=== PATIENT | male | born 1995 | race Caucasian/White ===

== ENCOUNTER 2017-11-26 14:12 | Emergency (ER) | payer OTHER ==
--- NOTE | 2017-11-26 14:33 | ER Document Report ---
ED GI/ - General Mode of Arrival: Ambulatory Information source: Patient TRAVEL OUTSIDE OF THE [place] IN LAST 30 DAYS: No <FREEMAN ORELLANA - Last Filed: 11/26/17 15:05> <FREDI FRIAS - Last Filed: 12/05/17 07:41> - General Chief Complaint: Abdominal Pain Stated Complaint: ABDOMINAL PAIN Time Seen by Provider: 11/26/17 14:30 Notes: Patient is a 22-year-old male that presents to the emergency department today after feeling "backed up". Patient states he developed pain when he woke up this morning and it is localized in the left lower quadrant. Patient states the pain does not radiate. Patient states he had a normal bowel movement last night but he has not had one today. Patient describes the pain as a throbbing pain and describes it as waxing and waning. Patient denies any testicular pain or blood in his diarrhea or bowel movements. (FREEMAN ORELLANA) - Related Data Allergies/Adverse Reactions: No Known Allergies Allergy (Verified 11/26/17 14:13) Past Medical History - General Information source: Patient - Social History Smoking Status: Never Smoker Cigarette use (# per day): No Frequency of alcohol use: None Drug Abuse: None Lives with: Family Family History: Reviewed & Not Pertinent Psychiatric Medical History: Reports: Hx Anxiety, Hx Attention Deficit Hyperactivity Disorder, Hx Depression Surgical Hx: Negative <FREEMAN ORELLANA - Last Filed: 11/26/17 15:05> Review of Systems - Review of Systems Constitutional: No symptoms reported EENT: No symptoms reported Cardiovascular: No symptoms reported Respiratory: No symptoms reported Gastrointestinal: See HPI, Abdominal pain. denies: Black stools, Rectal bleeding Genitourinary: No symptoms reported Male Genitourinary: denies: Testicular pain Musculoskeletal: No symptoms reported Skin: No symptoms reported Hematologic/Lymphatic: No symptoms reported Neurological/Psychological: No symptoms reported -: Yes All other systems reviewed and negative <FREEMAN ORELLANA - Last Filed: 11/26/17 15:05> Physical Exam <FREEMAN ORELLANA - Last Filed: 11/26/17 15:05> <FREDI FRIAS - Last Filed: 12/05/17 07:41> - Vital signs Vitals: Temp Pulse Resp BP Pulse Ox 97.5 F 58 L 16 142/93 H 100 11/26/17 14:22 11/26/17 14:22 11/26/17 14:22 11/26/17 14:22 11/26/17 14:22 - Notes Notes: Physical Exam: General: Alert, appears well. HEENT: Normocephalic. Atraumatic. PERRL. Extraocular movements intact. Oropharynx clear. Neck: Supple. Non-tender. Respiratory: No respiratory distress. Clear and equal breath sounds bilaterally. Cardiovascular: Regular rate and rhythm. Abdominal: Mild left lower quadrant tenderness with palpation, no rebound or guarding. No distension. Normal Bowel Sounds. Back: Non-tender. No deformity or step off. Extremities: Moves all four extremities. Upper extremities: Normal inspection. Normal ROM. Lower extremities: Normal inspection. No edema. Normal ROM. Neurological: Normal cognition. AAOx4. Normal speech. Psychological: Normal affect. Normal Mood. Skin: Warm. Dry. Normal color. (FREEMAN ORELLANA) Course - Laboratory Result Diagrams: 11/26/17 14:37 11/26/17 14:37 <FREEMAN ORELLANA - Last Filed: 11/26/17 15:05> - Laboratory Result Diagrams: 11/26/17 14:37 11/26/17 14:37 <FREDI FRIAS - Last Filed: 12/05/17 07:41> - Re-evaluation Re-evalutation: 11/26/17 16:50 Patient found to have 3 mm stone in bladder. Urine shows no signs of infection. Discussed findings with family at bedside and patient. Patient will be discharged with pain and nausea control. Return precautions provided regarding signs and symptoms of infected stone. Encourage patient to drink more water instead of soft drinks (FREDI FRIAS) - Vital Signs Vital signs: Temp Pulse Resp BP Pulse Ox 97.5 F 58 L 21 H 132/83 H 99 11/26/17 16:59 11/26/17 14:22 11/26/17 16:59 11/26/17 16:59 11/26/17 16:59 - Laboratory Laboratory results interpreted by me: 11/26/17 11/26/17 11/26/17 14:37 14:37 14:52 WBC 18.5 H Absolute Neutrophils 14.0 H Absolute Monocytes 1.5 H Glucose 134 H Calcium 10.5 H AST 15 L Urine Protein 30 H Urine Blood LARGE H Urine Urobilinogen 4.0 H Discharge <FREEMAN ORELLANA - Last Filed: 11/26/17 15:05> <FREDI FRIAS - Last Filed: 12/05/17 07:41> - Discharge Clinical Impression: Kidney stone on left side Disposition: HOME, SELF-CARE Instructions: Kidney Stone ([facility]) Additional Instructions: If you begin to develop any fevers or chills return immediately to emergency department for reevaluation. Prescriptions: Ondansetron HCl [Zofran 4 mg Tablet] 1 tab PO Q4H PRN #10 tablet PRN Reason: Oxycodone HCl/Acetaminophen [Percocet 5-325 mg Tablet] 1 tab PO Q4H PRN #15 tablet PRN Reason: Referrals: NAZ HOGAN PA-C [Primary Care Provider] - Follow up as needed Scribe Attestation: 12/05/17 07:41 I personally performed the services described in the documentation, reviewed and edited the documentation which was dictated to the scribe in my presence, and it accurately records my words and actions. (FREDI FRIAS) Scribe Documentation - Scribe Written by Rachellee:: Cecilia Burgess, 11/26/2017 1505 acting as scribe for :: Trent <FREEMAN ORELLANA - Last Filed: 11/26/17 15:05>
[2017-11-26 14:58] LABS: ABSOLUTE BASOPHILS # (AUTO) 0.1 10^3/uL (0.0-0.2); ABSOLUTE EOSINOPHILS # (AUTO) 0.4 10^3/uL (0.0-0.6); ABSOLUTE LYMPHOCYTES (AUTO) 2.5 10^3/uL (0.5-4.7); ABSOLUTE MONOCYTES (AUTO) 1.5 10^3/uL (0.1-1.4); BASOPHILS % (AUTO) 0.5 % (0-2); EOSINOPHILS % (AUTO) 2.4 % (0-6); HEMATOCRIT 43.7 % (37.9-51.0); HEMOGLOBIN 14.8 g/dL (13.5-17.0); LYMPHOCYTES % (AUTO) 13.6 % (13-45); MEAN CORPUSCULAR HGB CONC 33.9 g/dL (32.0-36.0); MEAN CORPUSCULAR VOLUME 89 fl (80-97); MONOCYTES % (AUTO) 8.2 % (3-13); PLATELET COUNT 450 10^3/uL (150-450); RED BLOOD COUNT 4.93 10^6/uL (4.35-5.55); RED CELL DISTRIBUTION WIDTH 13.5 % (11.5-14.0); SEGMENTED NEUTROPHILS % (AUTO) 75.3 % (42-78); TOTAL CELLS COUNTED % (AUTO) 100 %; WHITE BLOOD COUNT 18.5 10^3/uL (4.0-10.5)
[2017-11-26] MEDS ORDERED: METOCLOPRAMIDE HCL INJ/PF 10 MG/2 ML SDV IV ONE (14:58)
[2017-11-26] MEDS ORDERED: METOCLOPRAMIDE HCL ORAL SOLN 10 MG/10 ML UDCUP PO ONE (15:00)
[2017-11-26] MEDS ORDERED: MAG HYDROX/AL HYDROX/SIMETH SUSP 30 ML UDCUP PO ONE (15:00)
[2017-11-26] MEDS ORDERED: LIDOCAINE 2% VISCOUS SOLN 20 ML UDCUP PO ONE (15:00)
[2017-11-26 15:13] LABS: AMORPHOUS SEDIMENT,URINE TRACE /HPF; APPEARANCE,URINE CLOUDY; BILIRUBIN,URINE NEGATIVE (NEGATIVE); COLOR,URINE AMBER; GLUCOSE, URINE NEGATIVE (NEGATIVE); KETONES,URINE NEGATIVE (NEGATIVE); LEUKOCYTE ESTERASE,URINE NEGATIVE (NEGATIVE); NITRITE,URINE NEGATIVE (NEGATIVE); PROTEIN,URINE 30 mg/dL (NEGATIVE); URINE SPECIFIC GRAVITY 1.025
[2017-11-26 15:13] LABS: ALANINE AMINOTRANSFERASE 29 U/L (21-72); ALBUMIN 4.9 g/dL (3.5-5.0); ALKALINE PHOSPHATASE 61 U/L (38-126); ANION GAP 13 (5-19); ASPARTATE AMINO TRANSFERASE 15 U/L (17-59); BILIRUBIN,DIRECT 0.3 mg/dL (0.0-0.4); BILIRUBIN,TOTAL 0.8 mg/dL (0.2-1.3); BLOOD UREA NITROGEN 15 mg/dL (7-20); CALCIUM 10.5 mg/dL (8.4-10.2); CARBON DIOXIDE 30 mmol/L (22-30); CHLORIDE 101 mmol/L (98-107); GLUCOSE 134 mg/dL (75-110); LIPASE 59.3 U/L (23-300); SODIUM 143.6 mmol/L (137-145); TOTAL PROTEIN 8.1 g/dL (6.3-8.2)
[2017-11-26] MEDS ORDERED: FENTANYL CITRATE INJ/PF 100 MCG/2 ML AMPUL IV ONE (15:31)
[2017-11-26] MEDS ORDERED: KETOROLAC TROMETHAMINE INJ/PF 30 MG/1 ML SDV IV ONE (15:31)
--- NOTE | 2017-11-26 16:20 | RADIOLOGY REPORT (SQ) ---
EXAM DESCRIPTION: CT ABD/PELVIS WITH IV ONLY COMPLETED DATE/TIME: 11/26/2017 4:06 pm REASON FOR STUDY: LLQ TTP, pain, acute onset, elevated WBC COMPARISON: None. TECHNIQUE: CT scan of the abdomen and pelvis performed using helical scanning technique with dynamic intravenous contrast injection. No oral contrast. Images reviewed with lung, soft tissue, and bone windows. Reconstructed coronal and sagittal MPR images reviewed. Delayed images for evaluation of the urinary system also acquired. All images stored on PACS. All CT scanners at this facility use dose modulation, iterative reconstruction, and/or weight based d osing when appropriate to reduce radiation dose to as low as reasonably achievable (ALARA). [facility]: Dose Right [facility]: CareDose [facility]: Dose Right [facility]: Teradose 4D [facility]: myhomemove CONTRAST TYPE AND DOSE: contrast/concentration: Isovue 370.00 mg/ml; Total Contrast Delivered: 100.0 ml; Total Saline Delivered: 72.0 ml RENAL FUNCTION: None required. The patient is less than 50 years old. RADIATION DOSE: CT Rad equipment meets quality standard of care and radiation dose reduction techniq ues were employed. CTDIvol: 20.3 - 21.1 mGy. DLP: 2529 mGy-cm.. LIMITATIONS: None. FINDINGS: LOWER CHEST: No significant findings. No nodules or infiltrates. LIVER: Normal size. No masses. No dilated ducts. SPLEEN: Normal size. No focal lesions. PANCREAS: No masses. No significant calcifications. No adjacent inflammation or peripancreatic fluid collections. Pancreatic duct not dilated. GALLBLADDER: No identified stones by CT criteria. No inflammatory changes to suggest cholecystitis. ADRENAL GLANDS: No significant masses or asymmetry. RIGHT KIDNEY AND URETER: No solid masses. No significant calcifications. No hydronephrosis or hyd roureter. LEFT KIDNEY AND URETER: No solid masses. No significant calcifications. There is mild dilatation of the entire length of the left ureter. AORTA AND VESSELS: No aneurysm. No dissection. Renal arteries, SMA, celiac without stenosis. RETROPERITONEUM: No retroperitoneal adenopathy, hemorrhage or masses. BOWEL AND PERITONEAL CAVITY: No masses or inflammatory changes. No free fluid or peritoneal masses. APPENDIX: Normal. PELVIS: There is a 3 mm calcification noted within the dependent portion of the bladder. ABDOMINAL WALL: No masses. No hernias. BONES: No significant or acute findings. OTHER: No other significant finding. IMPRESSION: 3 mm stone within the bladder as well as mild dilatation of the left ureter is most cons istent with a recently passed stone from the ureter into the bladder. TECHNICAL DOCUMENTATION: JOB ID: [id number] Quality ID # [id number]: Final reports with documentation of one or more dose reduction techniques (e.g., Au tomated exposure control, adjustment of the mA and/or kV according to patient size, use of iterative reconstruction technique) 2010 [employer]- All Rights Reserved Reading location - IP/workstation name: [email or web address]
[2017-11-26 17:12] VITALS: BP 132/83
== END 2017-11-26 17:00 | disposition home or self-care (01) ==
LOC: ER 14:12
DX: N20.0 Calculus of kidney (principal); R10.32 Left lower quadrant pain
CPT/HCPCS: 99284; 36415; 83690; 85025; 80053; 81001; 74177; J3490; J1885